=== PATIENT | male | born 1950 | race Caucasian/White ===

== ENCOUNTER 2022-08-11 11:54 | Emergency (ER) | payer MEDICARE, SELFPAY ==
[2022-08-11 11:54] VITALS: BP 157/104; PULSE 72; RESP 16; TEMP 36.6; O2SAT 99; BMI 26.6
--- NOTE | 2022-08-11 12:04 | EDS_ITS ---
HPI History of Present Illness Chief Complaint: Upper Extremity Injury Detail of Chief Complaint: Right upper arm pain Informant: patient Narrative Narrative: Patient present secondary to right upper arm pain. He was throwing firewood when he felt a sudden pop in his right upper arm. He thinks he may have torn the muscle or tendon. He is right-hand dominant. No paresthesias. [facility] Medical History High cholesterol Home Medications hydrocodone-acetaminophen 5-325mg 5mg-325mg 1 tab PO Q6H PRN pain 3 days #10 tabs 08/11/22 [Rx Last Taken Unknown] Allergy/AdvReac Type Severity Reaction Status Date / Time amoxicillin [From Augmentin] AdvReac Upset Verified 08/11/22 11:56 Stomach clavulanic acid AdvReac Upset Verified 08/11/22 11:56 [From Augmentin] Stomach ROS ROS ED Constitutional Constitutional ED: Denies chills or fever(s) Eyes Eyes: Denies change in vision or discharge from eye(s) ENT ENT ED: Denies discharge from eye(s), rhinorrhea or sore throat Cardiovascular Cardiovascular: Denies chest pain or palpitations Respiratory/Chest Respiratory/Chest: Denies cough or dyspnea Gastrointestinal Gastrointestinal: Denies abdominal pain, nausea or vomiting Genitourinary Genitourinary ED: Denies dysuria Musculoskeletal Musculoskeletal: Reports extremity pain; Denies back pain Integumentary Denies Abrasions or rash Neurologic Neurologic: Denies headache(s) or weakness Psychiatric Psychiatric: Denies anxiety or depression Allergic/Immunologic Allergic/Immunologic ED: Denies lip swelling or urticaria EXAM Physical Exam Const Vital Signs: 08/11/22 11:54 Temperature 98 F Temperature Source Temporal Pulse Rate 72 Respiratory Rate 16 Blood Pressure 157/104 H Blood Pressure Mean 121 Pulse Ox 99 Oxygen Delivery Method Room Air Positive well nourished and well developed General Appearance ED: well developed HEENT Reports normocephalic and head/scalp atraumatic Eyes PERRL and EOMs intact bilaterally Neck supple Chest Wall inspection of chest normal and palpation of chest normal Resp normal respiratory effort and clear to auscultation bilaterally Cardio regular rate and regular rhythm GI normal to inspection, nondistended, normoactive bowel sounds Palpation: soft Extremity Extremity Narrative: Tenderness over the right bicep with mild prominence. No focal bony tenderness at the shoulder or elbow. Patient is able to flex and extend his arm. Good distal pulses with normal sensation. Neuro oriented x3 and no sensory deficits noted Sensorium / Orientation: alert Psych mental status grossly normal Skin no rashes or lesions noted MDM MDM MDM Narrative Medical decision making narrative: Patient is given a dose of [place] here. Right humerus x-rays obtained. Treatment and Re-Evaluation Narrative: Right humerus x-ray per my interpretation shows no bony abnormality. I did discuss with the patient I believe he likely has a biceps tendon tear. He will be given a sling and referred to orthopedics for follow-up. Prescription for [place] will be sent to the pharmacy for him. Discharge Plan Triage Chief Complaint: Upper Extremity Injury ED Provider: Cha Malone Dx/Rx/DC Orders Clinical Impression: Biceps tendon tear Instructions: ED Muscle Strain, Extremity Prescriptions: New hydrocodone-acetaminophen 5-325 mg tablet 1 tab PO Q6H PRN (Reason: pain) 3 Days Qty: 10 0RF Primary Care Provider: Jf Etienne Referrals: Jf Etienne MD [Primary Care Provider] - Thanh Miranda MD [Med Staff - Active Staff] - 5-7 Days Disposition Disposition: Home, Self Care
--- NOTE | 2022-08-11 12:04 | RAD_ITS ---
STUDY: X-RAY - RIGHT HUMERUS REASON FOR EXAM: Male, 72 years old. Injury TECHNIQUE: 2 view(s) of the humerus. COMPARISON: None. FINDINGS: Normal visualized humerus. There is no demonstrated fracture or osseous destructive process. There is no demonstrated soft tissue abnormality. RAD/Humerus min 2 Views IMPRESSION: Normal x-ray examination of the humerus. Electronically Signed: William Zarco MD at 12:55 EDT ,
[2022-08-11] MEDS: HYDROcodone Bitartrate/Apap 5/325 Tablet PO (12:48)
== END 2022-08-11 13:03 | disposition home or self-care (01) ==
PROVIDERS: Emergency Provider Emergency Medicine; PCP Family Medicine; Visit Provider Emergency Medicine
DX: S46.211A Strain of muscle, fascia and tendon of other parts of biceps, right arm, initial encounter (principal); X58.XXXA Exposure to other specified factors, initial encounter
CPT/HCPCS: 73060; 99283